=== PATIENT | female | born 1975 | race Caucasian/White ===

== ENCOUNTER 2021-10-07 13:32 | Outpatient (CLI) | payer BC ==
[2021-10-07 23:40] LABS: SARS-CoV-2 PCR by NAA Not Detected (NotDetected)
== END 2021-10-07 13:33 | disposition home or self-care (01) ==
LOC: LABBT 13:32 → EDBD 13:32 → LABBT 13:33
PROVIDERS: ATTEND Internal Medicine Gastroenterology
DX: Z12.11 Encounter for screening for malignant neoplasm of colon (principal); R11.2 Nausea with vomiting, unspecified; Z20.822 Contact with and (suspected) exposure to COVID-19
CPT/HCPCS: U0003; U0005

== ENCOUNTER 2021-10-10 07:06 | Day surgery (SDC) | payer BC ==
[2021-10-09 15:02] VITALS: BMI 38.7
[2021-10-10] MEDS ORDERED: PROPOFOL 200 MG/20 ML VIAL ONE (08:49)
== END 2021-10-10 10:37 | disposition home or self-care (01) ==
LOC: EDBD → SDC 07:06
PROVIDERS: ATTEND Internal Medicine Gastroenterology
PROC: 0DJD8ZZ Inspection of Lower Intestinal Tract, Via Natural or Artificial Opening Endoscopic (ICD-10-PCS; principal; 2021-10-10)
PROC: 0DB68ZX Excision of Stomach, Via Natural or Artificial Opening Endoscopic, Diagnostic (ICD-10-PCS; principal; 2021-10-10)
DX: Z12.11 Encounter for screening for malignant neoplasm of colon (principal); K57.31 Diverticulosis of large intestine without perforation or abscess with bleeding; K64.9 Unspecified hemorrhoids; K29.50 Unspecified chronic gastritis without bleeding; K29.80 Duodenitis without bleeding; E78.5 Hyperlipidemia, unspecified; E66.9 Obesity, unspecified; Z68.38 Body mass index [BMI] 38.0-38.9, adult; Z87.891 Personal history of nicotine dependence; Z79.890 Hormone replacement therapy
CPT/HCPCS: 88305; J2704